=== PATIENT | female | born 1995 | race Hispanic/Latino ===

== ENCOUNTER 2024-07-15 02:25 | Inpatient (IN) | payer MEDICAID, OTHER ==
[2024-07-15 02:55] VITALS: BMI 24.0
[2024-07-15] MEDS: Lactated Ringer's 1,000 ML IV SCH ×2 (04:50→05:59)
[2024-07-15] MEDS ORDERED: fentaNYL 50 mcg/mL 1 mL Vial SLOW IVP PRN (05:19)
[2024-07-15 05:20] LABS: Hemoglobin 9.6 g/dL (12.0-15.5); Mean Corpuscular Hemoglobin 24.6 pg (27.0-33.0); Mean Corpuscular Volume 76.9 fL (81.6-98.3); Mean Platelet Volume 10.2 fL (7.4-10.4); Platelet Count 268 10x3/uL (150-450); RBC Distribution Width 14.6 % (11.5-14.5); White Blood Cell (WBC) Count 8.3 10x3/uL (3.5-10.5)
[2024-07-15] MEDS ORDERED: Acetaminophen 500 MG TAB PO PRN (05:30)
[2024-07-15] MEDS ORDERED: hydrALAZINE 20 MG/ML VIAL SLOW IVP PRN ×2 (05:30→07:17)
[2024-07-15] MEDS ORDERED: Ondansetron PF 4 MG/2 ML Vial IVP PRN ×2 (05:30→07:17)
[2024-07-15] MEDS ORDERED: Promethazine HCl 25 MG/ML VIAL IM PRN ×2 (05:30→07:17)
[2024-07-15] MEDS ORDERED: Oxytocin 30 units/NS 500 ML 500 ML IV SCH ×2 (05:30→07:17)
[2024-07-15 05:37] LABS: Syphilis Antibody Nonreactive (Nonreactive); Syphilis Antibody Index 0.17 S/CO (<1.00 Non-Reactive)
[2024-07-15 05:40] LABS: HBsAg Index 0.39 S/CO (0-0.99); HIV (1/2) Antibody/Antigen Non-Reactive (NonReactive); HIV 1/2 INDEX 0.27 S/CO (<1.00); Hep B Surf Ag - L&D Non-Reactive S/CO (NonReactive)
[2024-07-15] MEDS: Oxytocin 30 units/NS 500 ML 500 ML IVPB SCH (05:42)
[2024-07-15] MEDS: Lidocaine 1% (PF) 30 ML VIAL SC PRN (06:00)
[2024-07-15] MEDS: fentaNYL/Ropivacaine Epidural 100 ML ONE (06:00)
[2024-07-15] MEDS ORDERED: diphenhydrAMINE 25 MG CAP PO PRN (07:17)
[2024-07-15] MEDS ORDERED: Lanolin Ointment 7 GM TUBE TOP PRN (07:17)
[2024-07-15] MEDS ORDERED: Milk Of Magnesia 30 ML UDCUP PO PRN (07:17)
[2024-07-15] MEDS ORDERED: Bisacodyl 10 MG SUPP PR PRN (07:17)
[2024-07-15] MEDS ORDERED: traMADol HCl 50 MG TAB PO PRN (07:17)
[2024-07-15] MEDS ORDERED: Preparation H Ointment 28 GM TUBE PR PRN (07:17)
[2024-07-15] MEDS: Prenatal Vitamin 1 TAB PO SCH (07:27)
[2024-07-15] MEDS: Docusate 100 MG CAP PO SCH (07:27)
[2024-07-15] MEDS: Ferrous Sulfate 325 MG TAB PO SCH (07:27)
[2024-07-15] MEDS: Erythromycin Base 0.5% Oint 1 GM TUBE ONE (07:28)
[2024-07-15] MEDS: Phytonadione Neonatal 1 MG/0.5 ML AMP ONE (07:28)
[2024-07-15] MEDS: Ketorolac Tromethamine 30 MG (1 mL) VIAL IVP SCH (07:31)
[2024-07-15] MEDS: Ibuprofen 800 MG TAB ONE (07:34)
[2024-07-15] MEDS ORDERED: Boostrix 0.5 ML (Tdap) VIAL (>/=7 yrs of age) IM ONE (09:00)
[2024-07-15] MEDS: Ibuprofen 800 MG TAB PO SCH (14:04)
[2024-07-15] MEDS: Benzocaine-Menthol 82.5 ML CAN TOP PRN (17:02)
[2024-07-16 07:38] VITALS: BP 100/59; TEMP 97.9
== END 2024-07-16 17:10 | disposition home or self-care (01) | DRG 807 ==
LOC: CSHLD/OP 02:25 → CSHLD 04:33 → CSHPP 08:45
PROVIDERS: ADMIT Family Medicine; ATTEND Family Medicine
PROC: 10E0XZZ Delivery of Products of Conception, External Approach (ICD-10-PCS; principal; 2024-07-15)
PROC: 0KQM0ZZ Repair Perineum Muscle, Open Approach (ICD-10-PCS; 2024-07-15)
PROC: 0UQMXZZ Repair Vulva, External Approach (ICD-10-PCS; 2024-07-15)
DX: O62.3 Precipitate labor (principal); Z37.0 Single live birth; Z3A.38 38 weeks gestation of pregnancy; Z79.82 Long term (current) use of aspirin; O70.1 Second degree perineal laceration during delivery; O71.82 Other specified trauma to perineum and vulva
CPT/HCPCS: 36415; 85027; 86780; 86850; 86900; 86901; 87340; 87389; 99285; J1885; J2590; J7120